=== PATIENT | male | born 1950 | race Caucasian/White ===

== ENCOUNTER → 2016-11-09 | Outpatient (CLI) | payer OTHER ==
[~2016-11-09] MED LIST: ALLEGRA 180MG180 MG PO; AMBIEN 10MG10 MG PO; ASPIRIN 81M81 MG/TA2 PO; ATIVAN 0.50.5 MG/TAB PO; COLACE 100100 MG/CAP PO; DEPO-TESTOS100 MG/ML IM; FLOMAX 0.40.4 MG/CAP PO; FLONASE NASAL S16 GM NS; HCTZ12.5TAB PO; LAMICTAL ODT100 MG TL; LAMICTAL150 MG PO; LEVAQUIN 750MG750 M1 PO; MACROBID 1100 MG/CAP PO; MICARDIS40 MG PO; MICARDIS80 MG PO; MULTIPLE VITAMI1 CAP PO; NAPROSYN500 MG PO; NEXIUM 40MG40 MG PO; NORCO 325 MG-51 TAB PO; TOPROL XL100 MG PO; TYLENOL 500MG500 MG; TYLENOL 500MG500 MG PO; UROXATRAL10 M1 PO; VALTREX 50500 MG/TAB PO; VESICARE10 MG PO; VIIBRYD40 MG PO; WELLBUTRIN SR150 M1 PO; ZESTRIL 20MG TA20 MG PO; ZOCOR 20MG20 MG PO
== END ==
LOC: COL.RAD 14:31
DX: M43.16 Spondylolisthesis, lumbar region (principal); M51.26 Other intervertebral disc displacement, lumbar region; M51.37 Other intervertebral disc degeneration, lumbosacral region

== ENCOUNTER → 2016-12-17 | Outpatient (CLI) | payer OTHER ==
[~2016-12-17] VITALS: Ht 182.9 cm; Wt 104.5 kg
[2016-12-17 07:25] VITALS: BP 116/78; PULSE 71
[2016-12-17 08:15] VITALS: BP 126/84; PULSE 68
== END ==
LOC: COL.RAD 06:30
DX: M54.5 Low back pain (principal); G89.29 Other chronic pain
CPT/HCPCS: J3301

== ENCOUNTER → 2017-01-20 | Outpatient (CLI) | payer OTHER | LOC: BHSO 08:50 | DX: F41.1 Generalized anxiety disorder (principal) ==

== ENCOUNTER → 2017-01-25 | Outpatient (CLI) | payer OTHER ==
[~2017-01-25] VITALS: Ht 182.9 cm; Wt 96.0 kg
[2017-01-25 10:36] VITALS: BP 119/85; PULSE 78
[2017-01-25 11:26] VITALS: BP 125/85; PULSE 78
== END ==
LOC: COL.RAD 09:18
DX: M54.5 Low back pain (principal); G89.29 Other chronic pain; M51.36 Other intervertebral disc degeneration, lumbar region
CPT/HCPCS: J3301

== ENCOUNTER → 2017-05-23 | Outpatient (CLI) | payer OTHER | LOC: BHSO 09:18 | DX: F41.1 Generalized anxiety disorder (principal) ==

== ENCOUNTER → 2017-06-24 | Outpatient (CLI) | payer MEDICARE, OTHER | LOC: COL.RAD 10:09 | DX: M43.16 Spondylolisthesis, lumbar region (principal) ==

== ENCOUNTER → 2017-08-16 | Outpatient (CLI) | payer MEDICARE, OTHER | LOC: BHSO 09:38 | DX: F41.1 Generalized anxiety disorder (principal) ==

== ENCOUNTER 2017-10-07 11:15 | Outpatient (RCR) | payer MEDICARE, OTHER | END 2017-10-12 | LOC: WSPT | DX: M43.16 Spondylolisthesis, lumbar region (principal); M48.061 Spinal stenosis, lumbar region without neurogenic claudication | CPT/HCPCS: G8978-GP; G8979-GP ==

== ENCOUNTER 2017-11-02 09:00 | Outpatient (RCR) | payer MEDICARE, OTHER | END 2017-11-29 08:05 | disposition home or self-care (01) | LOC: WSPT 09:00 | DX: M43.16 Spondylolisthesis, lumbar region (principal); M48.061 Spinal stenosis, lumbar region without neurogenic claudication ==

== ENCOUNTER → 2018-02-14 | Outpatient (CLI) | payer MEDICARE, OTHER | LOC: BHSO 10:17 | DX: F33.42 Major depressive disorder, recurrent, in full remission (principal) | CPT/HCPCS: G0463 ==

== ENCOUNTER 2018-04-19 09:30 | Outpatient (RCR) | payer MEDICARE, OTHER | END 2018-04-19 11:33 | disposition home or self-care (01) | LOC: WSPT 09:30 | DX: M43.16 Spondylolisthesis, lumbar region (principal); Z79.899 Other long term (current) drug therapy | CPT/HCPCS: G8978-GP; G8979-GP; G8980-GP ==

== ENCOUNTER → 2018-06-16 | Outpatient (CLI) | payer MEDICARE, OTHER | LOC: BHSO 08:23 | DX: F41.1 Generalized anxiety disorder (principal) | CPT/HCPCS: G0463 ==

== ENCOUNTER → 2018-12-01 | Outpatient (CLI) | payer MEDICARE, OTHER | LOC: BHSO 09:18 | DX: F41.1 Generalized anxiety disorder (principal) | CPT/HCPCS: G0463 ==

== ENCOUNTER → 2019-01-09 | Outpatient (CLI) | payer MEDICARE, OTHER | LOC: BHSO 08:40 | DX: F41.1 Generalized anxiety disorder (principal) | CPT/HCPCS: G0463 ==

== ENCOUNTER → 2019-03-13 | Outpatient (CLI) | payer MEDICARE, OTHER | LOC: BHSO 08:43 | DX: F90.0 Attention-deficit hyperactivity disorder, predominantly inattentive type (principal) | CPT/HCPCS: G0463 ==

== ENCOUNTER 2019-08-13 10:44 | Day surgery (SDC) | payer MEDICARE, OTHER ==
[~2019-08-13] VITALS: Ht 182.9 cm; Wt 86.9 kg
[~2019-08-13 10:44] MED LIST changes: -ATIVAN 0.50.5 MG/TAB PO; +ATIVAN 1MG T1 MG/TAB PO; +CONCERTA27 MG PO; -DEPO-TESTOS100 MG/ML IM; +DEPO-TESTOS200 MG/M1 IM; -FLONASE NASAL S16 GM NS; +FLONASEALLERGY NS; -HCTZ12.5TAB PO; -MULTIPLE VITAMI1 CAP PO; +MULTIPLE VITAMI1 TA5 PO; -NEXIUM 40MG40 MG PO; +OMEGA-3 FISH1000 MG PO; +PRIL40 PO; +TOPROL XL 50MG50 MG PO; -TOPROL XL100 MG PO; +VIAGRA100 M1 PO; -WELLBUTRIN SR150 M1 PO; +WELLBUTRIN XL150 MG PO; +WELLBUTRIN XL300 M1 PO; +ZOVIRAX5% TP
[2019-08-13 11:54] VITALS: BP 118/80; PULSE 62; TEMP 97.8
[2019-08-13] MEDS ORDERED: NORCO 325 MG-51 TAB PO (15:00)
[2019-08-13 15:55] VITALS: BP 109/65; PULSE 66; TEMP 97.7
--- NOTE | 2019-08-13 15:55 | NUR ---
Patient arrives back to [facility] alert, reports mild pain/discomfort in right lower abdomen, denies nausea. Patient monitor applied, vitals stable. Dressings (bandaids x3) clean/dry/intact. Patient's spouse at bedside. Patient given juice and muffin. Patient reports he would like to try a pain pill, patient educated that he needs to eat a little to help reduce nausea.
[2019-08-13 16:10] VITALS: BP 110/67; PULSE 65
[2019-08-13 16:25] VITALS: BP 104/71; PULSE 65
--- NOTE | 2019-08-13 16:30 | NUR ---
Patient reports that he is feeling good. Vitals stable, complains of mild discomfort in right lower abdomen. Dressings clean/dry/intact. Scrotal support in place.
[2019-08-13 16:40] VITALS: BP 110/68; PULSE 61
--- NOTE | 2019-08-13 16:45 | NUR ---
Dismissal instructions gone over with patient and patient's spouse. Both verbalize understanding and all questions answered. Patient and spouse thank staff for services.
--- NOTE | 2019-08-13 17:00 | NUR ---
Patient discharged to visitor enterance via wheelchair to private vehicle spouse is driving. Patient and spouse leave thanking staff for services.
== END 2019-08-13 17:00 | disposition home or self-care (01) ==
LOC: SDCO 10:44
DX: K40.91 Unilateral inguinal hernia, without obstruction or gangrene, recurrent (principal); I10 Essential (primary) hypertension; K21.9 Gastro-esophageal reflux disease without esophagitis; G47.33 Obstructive sleep apnea (adult) (pediatric); N40.0 Benign prostatic hyperplasia without lower urinary tract symptoms; Z87.442 Personal history of urinary calculi; M51.36 Other intervertebral disc degeneration, lumbar region; G89.29 Other chronic pain; M54.9 Dorsalgia, unspecified; M48.061 Spinal stenosis, lumbar region without neurogenic claudication; F41.9 Anxiety disorder, unspecified; F32.9 Major depressive disorder, single episode, unspecified; Z98.1 Arthrodesis status; Z80.3 Family history of malignant neoplasm of breast; Z82.49 Family history of ischemic heart disease and other diseases of the circulatory system; Z80.0 Family history of malignant neoplasm of digestive organs; Z88.1 Allergy status to other antibiotic agents; E78.00 Pure hypercholesterolemia, unspecified; Z79.899 Other long term (current) drug therapy; Z79.82 Long term (current) use of aspirin
CPT/HCPCS: C1781; J0690; J1100; J1170; J1885; J2270; J2405; J2704; J3010; J7120

== ENCOUNTER → 2019-09-11 | Outpatient (CLI) | payer MEDICARE, OTHER | LOC: BHSO 08:40 | DX: F90.0 Attention-deficit hyperactivity disorder, predominantly inattentive type (principal) | CPT/HCPCS: G0463 ==

== ENCOUNTER 2020-02-17 14:53 | Emergency (ER) | payer MEDICARE, OTHER ==
[~2020-02-17] VITALS: Ht 182.9 cm; Wt 84.1 kg
[2020-02-17 14:59] VITALS: TEMP 96.9
[2020-02-17 15:42] LABS: BASO % 0.2 % (0.0-2.0); EOS # 0.1 (0.0-0.7); EOS % 0.5 % (0-4.0); GRAN # 8.4 (1.4-6.5); GRAN % 76.6 % (42.2-75.2); HEMATOCRIT 41.6 % (42.0-52.0); HEMOGLOBIN 14.1 g/dl (13.5-18.0); LYMPH # 1.6 (1.2-3.4); LYMPH % 14.9 % (20.0-51.0); MEAN CELL VOLUME 95 fl (80.0-100.0); MEAN CORPUSCULAR HEMOGLOBIN 32 pg (27.0-31.0); MEAN CORPUSCULAR HGB CONC 34 g/dl (33.0-37.0); MEAN PLATELET VOLUME 10.8 fl (7.4-10.4); MONO # 0.8 (0.1-0.6); MONO % 7.5 % (1.7-9.3); PLATELET COUNT 185 K/mm3 (130-400); RED BLOOD COUNT 4.36 M/mm3 (4.20-5.60); REDCELL DISTRIBUTION WIDTH-CV 12.4 % (11.5-14.5)
[2020-02-17 15:56] LABS: ALANINE AMINOTRANSFERASE 81 U/L (4-49); ALKALINE PHOSPHATASE 91 U/L (50-136); ANION GAP 6 mmol/L (7-16); AST,SGOT 164 U/L (15-37); BILIRUBIN,TOTAL 1.2 mg/dL (0.0-1.0); BLOOD UREA NITROGEN 28 mg/dL (9-20); CALCIUM 9.3 mg/dL (8.4-10.2); CARBON DIOXIDE 26 mmol/L (22-30); CHLORIDE 107 mmol/L (98-107); CREATININE, serum 1.35 (0.66-1.25); GLUCOSE 110 mg/dL (74-106); LIPASE 59 U/L (23-300); POTASSIUM 4.2 mmol/L (3.4-5.0); SODIUM 139 mmol/L (137-145); TOTAL PROTEIN 6.8 gm/dL (6.4-8.2)
[2020-02-17 15:58] LABS: COLLECTION METHOD CLEAN CATCH
[2020-02-17 16:06] LABS: MUCOUS Present /lpf; PH 5 (5-8); SQUAMOUS EPITHELIAL 0-2 /hpf; URINE APPEARANCE Clear; URINE BACTERIA None Seen /hpf; URINE BILIRUBIN Negative (NEGATIVE); URINE BLOOD Negative (NEGATIVE); URINE COLOR Amber; URINE GLUCOSE Negative (NEGATIVE); URINE KETONE Negative (NEGATIVE); URINE LEUKOCYTE ESTERASE Negative (NEGATIVE); URINE NITRATE Negative (NEGATIVE); URINE PROTEIN(semi-quant) Negative (NEGATIVE); URINE UROBILINOGEN >=4.0 mg/dL (NEGATIVE)
[2020-02-17 16:12] LABS: C-REACTIVE PROTEIN < 0.5 mg/dL (0.0-0.9)
[2020-02-17 18:20] VITALS: BP 121/83; PULSE 57
== END 2020-02-17 18:20 | disposition home or self-care (01) ==
LOC: COL.ER 14:53
PROVIDERS: Emergency Medicine
DX: R10.11 Right upper quadrant pain (principal); Z79.82 Long term (current) use of aspirin; Z79.51 Long term (current) use of inhaled steroids
CPT/HCPCS: J1885; J7030; Q9967

== ENCOUNTER → 2020-03-11 | Outpatient (CLI) | payer MEDICARE, OTHER | LOC: BHSO 08:34 | DX: F90.0 Attention-deficit hyperactivity disorder, predominantly inattentive type (principal) | CPT/HCPCS: G0463 ==